=== PATIENT | male | born 1955 | race African-American/Black ===

== ENCOUNTER 2017-08-02 11:58 | Inpatient (IN) | payer OTHER ==
[2017-08-02 12:28] VITALS: BMI 16.7
--- NOTE | 2017-08-02 13:53 | HP ---
Admission ROS [facility] Chief Complaint: I WANT TO GO TO REHAB Allergies/Adverse Reactions: Allergies Allergy/AdvReac Type Severity Reaction Status Date / Time No Known Allergies Allergy Verified 08/02/17 13:48 History of Present Illness: 61 years old male with long history of alcohol nicotine dependence has hiv asthma hypothyroid stroke x 2 ambulate with cane right side weakness is admitted to REHAB PATIENT EXPERIENCED CHEST WALL MUSCLE PAIN TREATED AT [facility] ER DISCHARGED TODAY TO [facility] FOR CHEMICAL REHAB Exam Limitations: No Limitations - Ebola screening Have you traveled outside of the country in the last 21 days: No Have you had contact with anyone from an Ebola affected area: No Have you been sick,other than usual withdrawal symptoms: No Do you have a fever: No - Review of Systems Constitutional: Loss of Appetite, Unintentional Wgt. Loss, Unexplained wgt Loss EENT: reports: Blurred Vision (eye glasses), Dental Problems (multiple teeth missing) Respiratory: reports: No Symptoms reported Cardiac: reports: No Symptoms Reported : reports: No Symptoms Reported Musculoskeletal: reports: No Symptoms Reported Integumentary: reports: No Symptoms Reported Neuro: reports: No Symptoms reported Endocrine: reports: Unexplained Weight Loss Hematology: reports: No Symptoms Reported Psychiatric: reports: Judgement Intact, Orientated x3, Anxious, Depressed Other Systems: Reviewed and Negative Patient History - Patient Medical History Hx Anemia: Yes (HX OF ANEMIA) Hx Asthma: Yes (ALBUTEROL INHALER) Hx Chronic Obstructive Pulmonary Disease (COPD): No Hx Cancer: No Hx Cardiac Disorders: Yes (HEART MURMUR--NO MED) Hx Congestive Heart Failure: No Hx Hypertension: No Hx Hypercholesterolemia: No Hx Pacemaker: No HX Cerebrovascular Accident: Yes (X 2-PARALYSIS LEFT SIDE 6 YRS AGO--INTERMEDIATE REHABED) Hx Seizures: No Hx Dementia: No Hx Diabetes: No Hx Gastrointestinal Disorders: Yes (bun elevation) Hx Liver Disease: Yes ("I HAVE BAD LIVER") Hx Genitourinary Disorders: No Hx Sexually Transmitted Disorders: No Hx Renal Disease (ESRD): Yes ("I HAVE BAD KIDNEYS") Hx Thyroid Disease: Yes (ON MED LEVOTHYROXINE 50 MCG ) Hx Human Immunodeficiency Virus (HIV): Yes (SINCE 1984--AIDS; HX OF ORAL THRUSH/ BACTERIAL PNEUMONIA/WT LOSS) Hx Hepatitis C: Yes Hx Depression: Yes Hx Suicide Attempt: No (DENIES) Hx Bipolar Disorder: No Hx Schizophrenia: No - Patient Surgical History Past Surgical History: No - PPD History Previous Implant?: Yes Documented Results: Negative w/proof Implanted On Prior [facility] Admission?: Yes Date: 07/27/13 PPD to be Administered?: Yes - Smoking Cessation Smoking history: Current every day smoker Have you smoked in the past 12 months: Yes Aproximately how many cigarettes per day: 5 Hx Chewing Tobacco Use: No Initiated information on smoking cessation: Yes 'Breaking Loose' booklet given: 08/02/17 - Substance & Tx. History Hx Alcohol Use: Yes Hx Substance Use: No Substance Use Type: Alcohol, Cocaine Hx Substance Use Treatment: Yes (2013 [facility]) - Substances Abused Alcohol-beer/vodka Route: Oral Frequency: 1-3 times last 30 days Amount used: 1 (16 oz.)/1/2 pt. Age of first use: 7 Date of Last Use: 08/01/17 Crack Route: Smoking Frequency: 1-3 times last 30 days Amount used: $100-200 Age of first use: 32 Date of Last Use: 08/01/17 Family Disease History - Family Disease History Family Disease History: Diabetes: Mother (), Heart Disease: Father ( ), Brother (), Other: Father, Mother, Brother Admission Physical Exam S - Vital Signs Vital Signs: Vital Signs - 24 hr 08/02/17 12:18 Temperature 97 F L Pulse Rate 73 Respiratory 20 Rate Blood Pressure 112/59 - Physical General Appearance: Yes: No Apparent Distress, Appropriately Dressed, Thin HEENTM: Yes: Hearing grossly Normal, Normocephalic, Normal Voice, Other (EYE GLASSES) Respiratory: Yes: Chest Non-Tender, Lungs Clear, Normal Breath Sounds, No Respiratory Distress, No Accessory Muscle Use Neck: Yes: Supple, Trachea in good position Breast: Yes: Breasts Symetrical, No Discharge Cardiology: Yes: Regular Rhythm, Regular Rate, S1, S2 Abdominal: Yes: Normal Bowel Sounds, Non Tender, Flat Genitourinary: Yes: Within Normal Limits Back: Yes: Normal Inspection Musculoskeletal: Yes: full range of Motion, Gait Steady (CANE) Extremities: Yes: Normal Inspection, Non-Tender Neurological: Yes: Fully Oriented, Alert, Normal Response, Depressed Affect Integumentary: Yes: Normal Color, Warm Lymphatic: Yes: Within Normal Limits - Diagnostic (1) Weight loss Current Visit: Yes Status: Acute (2) Hepatitis C Current Visit: Yes Status: Chronic Qualifiers: Viral hepatitis chronicity: carrier Qualified Code(s): B18.2 - Chronic viral hepatitis C Comment: TREATED (3) Depression (emotion) Current Visit: Yes Status: Suspected Qualifiers: Depression Type: dysthymia Qualified Code(s): F34.1 - Dysthymic disorder (4) Asthma Current Visit: Yes Status: Chronic Qualifiers: Asthma severity: mild Asthma persistence: intermittent Asthma complication type: with status asthmaticus Qualified Code(s): J45.22 - Mild intermittent asthma with status asthmaticus (5) CVA (cerebrovascular accident) Current Visit: No Status: Resolved Qualifiers: CVA mechanism: unspecified Qualified Code(s): I63.9 - Cerebral infarction, unspecified (6) HIV infection Current Visit: Yes Status: Chronic Comment: NO TREATMENT STRONG RECOMMEND THE PATIENT FOLLOW UP WITH INFECTIOUS DISEASE PROVIDER (7) Hypothyroid Current Visit: Yes Status: Chronic Qualifiers: Hypothyroidism type: acquired Qualified Code(s): E03.9 - Hypothyroidism, unspecified (8) Nicotine dependence Current Visit: Yes Status: Acute Qualifiers: Nicotine product type: cigarettes Substance use status: in withdrawal Qualified Code(s): F17.213 - Nicotine dependence, cigarettes, with withdrawal (9) Chronic wound of extremity Current Visit: Yes Status: Chronic Comment: LEFT HEEL CHRONIC WOUND NO DISCHARGE DRY CRUSTY (10) Dry skin dermatitis Current Visit: Yes Status: Chronic Comment: DRY HYPERPIGMENTATION OF THE SKIN Cleared for Admission [facility] - Detox or Rehab [facility] Level of Care: Observation Bed Detox Regimen/Protocol: Not Applicable Claeared for Rehab Admission: Yes [facility] Breath Alcohol Content Breath Alcohol Content: 0 Urine Drug Screen - Control Is Test Valid: Yes - Results Drug Screen Negative: No Urine Drug Screen Results: TANO-Cocaine Inpatient Rehab Admission - Initial Determination Are CD services needed?: Yes Free of communicable disease: Yes Not in need of hospitalization: Yes - Rehab Admission Criteria Previous failed treatment: Yes Poor recovery environment: Yes Comorbidities: Yes Lacks judgement: No Patient is meeting Inpatient Rehab admission criteria:: Yes
[2017-08-02] MEDS ORDERED: IBUPROFEN 400 MG TABLET (FP) PO PRN (14:20)
[2017-08-02] MEDS ORDERED: MAGNESIUM HYDROX 2400MG/30ML ORAL SUSPENSION 30 ML CUP PO PRN (14:20)
[2017-08-02] MEDS ORDERED: MAG HYDROX/AL HYDROX/SIMETH 30 ML UNIT-DOSE CUP PO PRN (14:20)
[2017-08-02] MEDS ORDERED: NICOTINE POLACRILEX 2 MG GUM BC PRN (14:20)
[2017-08-02] MEDS ORDERED: P-EPHED 60MG/TRIPROLIDI 2.5MG TABLET PO PRN (14:20)
[2017-08-02] MEDS ORDERED: guaiFENesin/D-METHORPHAN HB 10 ML UNIT-DOSE CUPS PO PRN (14:20)
[2017-08-02] MEDS ORDERED: MAGNESIUM CITRATE 300 ML BOTTLE PO PRN (14:20)
[2017-08-02] MEDS ORDERED: MENTHOL/PHENOL 1 EACH UD MM PRN (14:20)
[2017-08-02] MEDS ORDERED: ALBUTEROL SO4 18 GM HFA INHALER IH PRN (14:23)
[2017-08-02] MEDS ORDERED: DOCUSATE SODIUM 100 MG CAPSULE (FP) PO PRN (15:28)
[2017-08-02] MEDS ORDERED: COLLOIDAL OATMEAL 1 BAR EACH TP PRN (15:33)
[2017-08-02] MEDS ORDERED: BACLOFEN 10 MG TABLET (FP) PO PRN (15:37)
[2017-08-02] MEDS ORDERED: TUBERCULIN PPD 5 TU/0.1ML VIAL ID ONE (20:51)
[2017-08-02] MEDS: MELATONIN 5 MG TABLETS PO PRN (22:09)
[2017-08-02] MEDS: THIAMINE HCL 100 MG TABLET (FP) PO SCH (22:09)
[2017-08-02] MEDS: NICOTINE 14 MG/24 HOURS TOPICAL PATCH TD SCH (22:11)
[2017-08-02] MEDS: MINERAL OIL/PETROLAT/WATER TOPICAL CREAM 113 GM JAR TP SCH (22:16)
[2017-08-03] MEDS: LOPERAMIDE HCL 2 MG CAPSULE PO PRN ×2 (01:11→21:38)
[2017-08-03] MEDS: LEVOTHYROXINE NA 25 MCG TABLET (FP) PO SCH (06:04)
--- NOTE | 2017-08-03 06:30 | HP ---
Psychiatrist Admission - Data Date of interview: 08/03/17 Admission source: [facility] Identifying data: This is the second [facility] admission for this 61 years old single Black male, unemployed on [employer] and [employer] subsidized congregate housing Medical History: Significant for anemia, bronchial asthma, HIV(85)/AIDS, hypothyroidism, hepatitis C, A & B, heart murmur and history of cerebrovascular accident x2 with right sided weakness 6 years ago. Smokes 5 cigarettes daily Psychiatric History: Denies history of previous psychiatric treatment Physical/Sexual Abuse/Trauma History: Denies history of emotional, physical or sexual as well as DV relationhip. No service Additional Comment: Reports history of multiple previous arretst including 3 felony convictions. Denies being on parole/probation at present Vital Signs: Vital Signs - 24 hr 08/02/17 08/03/17 08/03/17 12:18 00:30 03:30 Temperature 97 F L Pulse Rate 73 Respiratory 20 18 18 Rate Blood Pressure 112/59 Allergies/Adverse Reactions: Allergies Allergy/AdvReac Type Severity Reaction Status Date / Time No Known Allergies Allergy Verified 08/02/17 13:48 Date of last physical exam: 08/02/17 Concur with the findings of this exam: Yes - Substance Abuse/Tx History Hx Alcohol Use: Yes Hx Substance Use: Yes Substance Use Type: Alcohol (Started drinking alcohol at age 7, consumes half a pint of vodka & a 16oz of beer daily. Last drank on 08/01/17), Cocaine (Started smoking crack cocaine at age 32, consumes $200-300 monthly. Last smoked on ) Hx Substance Use Treatment: Yes (One inpt detox & one inpt rehab @ [facility]) Mental Status Exam - Mental Status Exam Alert and Oriented to: Time, Place, Person Cognitive Function: Fair Patient Appearance: Disheveled Mood: Anxious Affect: Appropriate Patient Behavior: Cooperative Speech Pattern: Clear Voice Loudness: Normal Thought Process: Intact, Goal Oriented Hallucinations: Denies Suicidal Ideation: Denies Homicidal Ideation: Denies Insight/Judgement: Poor Sleep: Poorly Appetite: Good Muscle strength/Tone: Normal Gait/Station: Other (uses cane as ambulary aid) Psychiatric Findings - Problem List ([place] 1, 2,3) (1) Alcohol dependence Current Visit: Yes Status: Acute (2) Cocaine dependence Current Visit: Yes Status: Acute (3) Nicotine dependence Current Visit: Yes Status: Chronic Qualifiers: Nicotine product type: cigarettes Substance use status: in withdrawal Qualified Code(s): F17.213 - Nicotine dependence, cigarettes, with withdrawal (4) Substance-induced sleep disorder Current Visit: Yes Status: Acute (5) Hypothyroid Current Visit: Yes Status: Chronic Qualifiers: Hypothyroidism type: acquired Qualified Code(s): E03.9 - Hypothyroidism, unspecified (6) HIV infection Current Visit: Yes Status: Chronic Comment: NO TREATMENT STRONG RECOMMEND THE PATIENT FOLLOW UP WITH INFECTIOUS DISEASE PROVIDER (7) CVA (cerebrovascular accident) Current Visit: No Status: Resolved Qualifiers: CVA mechanism: unspecified Qualified Code(s): I63.9 - Cerebral infarction, unspecified (8) Asthma Current Visit: Yes Status: Chronic Qualifiers: Asthma severity: mild Asthma persistence: intermittent Asthma complication type: with status asthmaticus Qualified Code(s): J45.22 - Mild intermittent asthma with status asthmaticus (9) Hepatitis C Current Visit: Yes Status: Chronic Qualifiers: Viral hepatitis chronicity: carrier Qualified Code(s): B18.2 - Chronic viral hepatitis C Comment: TREATED - Initial Treatment Plan Initial Treatment Plan: 1) Start Melatonin 5 mg po HS prn for insomnia. 2) Monitor progress
[2017-08-03 10:24] LABS: MCH 28.6 pg (25.7-33.7); MCHC 31.3 g/dl (32.0-35.9); MEAN CELL VOLUME 91.2 fl (80-96); PLATELET COUNT 95 K/MM3 (134-434); RBC 3.51 M/mm3 (4.00-5.60); RDW 14.9 % (11.9-15.9); WHITE BLOOD COUNT 3.3 K/mm3 (4.0-10.0)
[2017-08-03] MEDS: NICOTINE 14 MG/24 HOURS TOPICAL PATCH TD SCH (10:37)
[2017-08-03] MEDS: PRENATAL VITAMINS W/ FOLIC ACID TABLET (FP) PO SCH (10:37)
[2017-08-03 11:27] LABS: ALBUMIN 3.3 g/dl (3.4-5.0); ANION GAP 12 (8-16); BLOOD UREA NITROGEN 37 mg/dL (7-18); CALCIUM 8.1 mg/dL (8.5-10.1); CHLORIDE 113 mmol/L (98-107); CO2 17 mmol/L (21-32); GLUCOSE,RANDOM 93 mg/dL (74-106); POTASSIUM 4.5 mmol/L (3.5-5.1); SODIUM 142 mmol/L (136-145)
[2017-08-03 11:41] LABS: ALK PHOS 75 U/L (45-117); BILIRUBIN,TOTAL 0.3 mg/dL (0.2-1.0); CREATININE 2.4 mg/dL (0.7-1.3); SGOT/AST 41 U/L (15-37); SGPT/ALT 25 U/L (12-78); TOT PROT 9.7 g/dl (6.4-8.2)
--- NOTE | 2017-08-03 11:54 | EKG ---
Test Reason : Blood Pressure : / mmHG Vent. Rate : 061 BPM Atrial Rate : 061 BPM P-R Int : 166 ms QRS Dur : 072 ms QT Int : 422 ms P-R-T Axes : 047 -48 037 degrees QTc Int : 424 ms NORMAL SINUS RHYTHM LEFT ANTERIOR FASCICULAR BLOCK ABNORMAL ECG NO PREVIOUS ECGS AVAILABLE Confirmed by MINH VARGAS MD ([id number]) on 08/03/2017 11:54:14 AM Referred By: Confirmed By:MINH VARGAS MD
[2017-08-03] MEDS: ACETAMINOPHEN 325 MG TABLET (FP) PO PRN (13:32)
--- NOTE | 2017-08-03 14:55 | PN ---
[facility] Progress Note Note: Labs reviewed and as follows: Laboratory Tests 08/03/17 08/03/17 08/03/17 06:00 06:00 06:00 WBC 3.3 L D RBC 3.51 L Hgb 10.0 L Hct 32.0 L MCV 91.2 MCH 28.6 MCHC 31.3 L RDW 14.9 Plt Count 95 L MPV 9.0 D Sodium 142 Potassium 4.5 Chloride 113 H Carbon Dioxide 17 L Anion Gap 12 BUN 37 H Creatinine 2.4 H D Creat Clearance w eGFR 27.66 Random Glucose 93 Calcium 8.1 L Total Bilirubin 0.3 D AST 41 H D ALT 25 Alkaline Phosphatase 75 D Total Protein 9.7 H Albumin 3.3 L TSH 3.01 RPR Titer Nonreactive Vital Signs Temperature 97.3 F L 08/03/17 07:00 Pulse Rate 78 08/03/17 07:00 Respiratory Rate 18 08/03/17 07:00 Blood Pressure 124/79 08/03/17 07:00 O2 Sat by Pulse Oximetry (%) BUN and Creatnine elevated: Will d/c motrin continue oral fluids repeat BMP 08/07/17
[2017-08-03] MEDS: THIAMINE HCL 100 MG TABLET (FP) PO SCH (21:38)
[2017-08-03] MEDS: MELATONIN 5 MG TABLETS PO PRN (21:38)
[2017-08-03] MEDS: MINERAL OIL/PETROLAT/WATER TOPICAL CREAM 113 GM JAR TP SCH (22:00)
[2017-08-04] MEDS: LEVOTHYROXINE NA 25 MCG TABLET (FP) PO SCH (06:32)
[2017-08-04] MEDS: PRENATAL VITAMINS W/ FOLIC ACID TABLET (FP) PO SCH (10:26)
[2017-08-04] MEDS: NICOTINE 14 MG/24 HOURS TOPICAL PATCH TD SCH (10:26)
--- NOTE | 2017-08-04 14:54 | PN ---
[facility] Progress Note Note: dry skin, pain on left heel. Vital Signs Temperature 97.8 F 08/04/17 07:13 Pulse Rate 97 H 08/04/17 08:54 Respiratory Rate 18 08/04/17 07:13 Blood Pressure 117/79 08/04/17 08:54 O2 Sat by Pulse Oximetry (%) Laboratory Last Values WBC 3.3 K/mm3 (4.0-10.0) L D 08/03/17 06:00 RBC 3.51 M/mm3 (4.00-5.60) L 08/03/17 06:00 Hgb 10.0 GM/dL (11.7-16.9) L 08/03/17 06:00 Hct 32.0 % (35.4-49) L 08/03/17 06:00 MCV 91.2 fl (80-96) 08/03/17 06:00 MCH 28.6 pg (25.7-33.7) 08/03/17 06:00 MCHC 31.3 g/dl (32.0-35.9) L 08/03/17 06:00 RDW 14.9 % (11.9-15.9) 08/03/17 06:00 Plt Count 95 K/MM3 (134-434) L 08/03/17 06:00 MPV 9.0 fl (7.5-11.1) D 08/03/17 06:00 Sodium 142 mmol/L (136-145) 08/03/17 06:00 Potassium 4.5 mmol/L (3.5-5.1) 08/03/17 06:00 Chloride 113 mmol/L (98-107) H 08/03/17 06:00 Carbon Dioxide 17 mmol/L (21-32) L 08/03/17 06:00 Anion Gap 12 (8-16) 08/03/17 06:00 BUN 37 mg/dL (7-18) H 08/03/17 06:00 Creatinine 2.4 mg/dL (0.7-1.3) H D 08/03/17 06:00 Creat Clearance w eGFR 27.66 (>60) 08/03/17 06:00 Random Glucose 93 mg/dL (74-106) 08/03/17 06:00 Calcium 8.1 mg/dL (8.5-10.1) L 08/03/17 06:00 Total Bilirubin 0.3 mg/dL (0.2-1.0) D 08/03/17 06:00 AST 41 U/L (15-37) H D 08/03/17 06:00 ALT 25 U/L (12-78) 08/03/17 06:00 Alkaline Phosphatase 75 U/L (45-117) D 08/03/17 06:00 Total Protein 9.7 g/dl (6.4-8.2) H 08/03/17 06:00 Albumin 3.3 g/dl (3.4-5.0) L 08/03/17 06:00 TSH 3.01 uIU/ml (0.358-3.74) 08/03/17 06:00 RPR Titer Nonreactive (NONREACTIVE) 08/03/17 06:00 -dry skin, + callus on old healed wound on the left heel, skin intact, no signs of tissue injury - no adventitious breath sounds - Patient ambulating in the unit Plan: Increase fluids Apply A&D oint to left heel skin precautions continue to monitor
[2017-08-04] MEDS: VITAMINS A AND D TOPICAL OINTMENT 60 GM TUBE TP SCH ×2 (15:20→21:09)
[2017-08-04] MEDS: THIAMINE HCL 100 MG TABLET (FP) PO SCH (21:09)
[2017-08-04] MEDS: MELATONIN 5 MG TABLETS PO PRN (21:44)
[2017-08-04] MEDS: MINERAL OIL/PETROLAT/WATER TOPICAL CREAM 113 GM JAR TP SCH (21:45)
[2017-08-05] MEDS: VITAMINS A AND D TOPICAL OINTMENT 60 GM TUBE TP SCH ×3 (05:51→21:18)
[2017-08-05] MEDS: LEVOTHYROXINE NA 25 MCG TABLET (FP) PO SCH (06:04)
[2017-08-05] MEDS: PRENATAL VITAMINS W/ FOLIC ACID TABLET (FP) PO SCH (09:50)
[2017-08-05] MEDS: NICOTINE 14 MG/24 HOURS TOPICAL PATCH TD SCH (09:50)
[2017-08-05] MEDS: THIAMINE HCL 100 MG TABLET (FP) PO SCH (21:17)
[2017-08-05] MEDS: MELATONIN 5 MG TABLETS PO PRN (21:17)
[2017-08-05] MEDS: ACETAMINOPHEN 325 MG TABLET (FP) PO PRN (21:17)
[2017-08-05] MEDS: MINERAL OIL/PETROLAT/WATER TOPICAL CREAM 113 GM JAR TP SCH (21:18)
[2017-08-06] MEDS: VITAMINS A AND D TOPICAL OINTMENT 60 GM TUBE TP SCH ×3 (06:15→21:17)
[2017-08-06] MEDS: LEVOTHYROXINE NA 25 MCG TABLET (FP) PO SCH (06:15)
[2017-08-06] MEDS: NICOTINE 14 MG/24 HOURS TOPICAL PATCH TD SCH (09:59)
[2017-08-06] MEDS: PRENATAL VITAMINS W/ FOLIC ACID TABLET (FP) PO SCH (09:59)
[2017-08-06] MEDS: ACETAMINOPHEN 325 MG TABLET (FP) PO PRN ×2 (10:00→21:16)
[2017-08-06] MEDS: THIAMINE HCL 100 MG TABLET (FP) PO SCH (21:16)
[2017-08-06] MEDS: MELATONIN 5 MG TABLETS PO PRN (21:16)
[2017-08-06] MEDS: MINERAL OIL/PETROLAT/WATER TOPICAL CREAM 113 GM JAR TP SCH (23:55)
[2017-08-07] MEDS: ACETAMINOPHEN 325 MG TABLET (FP) PO PRN ×4 (06:22→21:24)
[2017-08-07] MEDS: LEVOTHYROXINE NA 25 MCG TABLET (FP) PO SCH (06:23)
[2017-08-07] MEDS: VITAMINS A AND D TOPICAL OINTMENT 60 GM TUBE TP SCH ×3 (06:23→21:25)
[2017-08-07] MEDS: PRENATAL VITAMINS W/ FOLIC ACID TABLET (FP) PO SCH (10:02)
[2017-08-07] MEDS: NICOTINE 14 MG/24 HOURS TOPICAL PATCH TD SCH (10:04)
[2017-08-07 10:08] LABS: CHLORIDE 110 mmol/L (98-107); POTASSIUM 4.2 mmol/L (3.5-5.1); SODIUM 140 mmol/L (136-145)
[2017-08-07 10:25] LABS: ANION GAP 4 (8-16); BLOOD UREA NITROGEN 17 mg/dL (7-18); CALCIUM 8.2 mg/dL (8.5-10.1); CO2 26 mmol/L (21-32); CREATININE 1.5 mg/dL (0.7-1.3); GLUCOSE,RANDOM 146 mg/dL (74-106)
[2017-08-07] MEDS: THIAMINE HCL 100 MG TABLET (FP) PO SCH (21:24)
[2017-08-07] MEDS: MELATONIN 5 MG TABLETS PO PRN (21:24)
[2017-08-07] MEDS: MINERAL OIL/PETROLAT/WATER TOPICAL CREAM 113 GM JAR TP SCH (23:04)
[2017-08-08] MEDS: VITAMINS A AND D TOPICAL OINTMENT 60 GM TUBE TP SCH ×2 (06:23→14:50)
[2017-08-08] MEDS: LEVOTHYROXINE NA 25 MCG TABLET (FP) PO SCH (06:23)
[2017-08-08] MEDS: ACETAMINOPHEN 325 MG TABLET (FP) PO PRN ×4 (06:24→21:52)
[2017-08-08] MEDS: PRENATAL VITAMINS W/ FOLIC ACID TABLET (FP) PO SCH (10:01)
[2017-08-08] MEDS: NICOTINE 14 MG/24 HOURS TOPICAL PATCH TD SCH (10:01)
--- NOTE | 2017-08-08 14:03 | PN ---
S Progress Note Note: Patient seen for c/o frequent urination. Denies burning and urgency with urination. Patient remain afebrile and medically stable. Vital Signs Temperature 98.0 F 08/08/17 07:08 Pulse Rate 89 08/08/17 07:08 Respiratory Rate 18 08/08/17 07:08 Blood Pressure 110/71 08/08/17 07:08 O2 Sat by Pulse Oximetry (%) Unsure if he has PMH of BPH. Will check UA and continue to monitor clinically.
[2017-08-08] MEDS: MINERAL OIL/PETROLAT/WATER TOPICAL CREAM 113 GM JAR TP SCH (22:45)
[2017-08-09] MEDS: THIAMINE HCL 100 MG TABLET (FP) PO SCH ×2 (00:17→21:06)
[2017-08-09] MEDS: VITAMINS A AND D TOPICAL OINTMENT 60 GM TUBE TP SCH ×4 (00:17→21:06)
[2017-08-09] MEDS: ACETAMINOPHEN 325 MG TABLET (FP) PO PRN ×4 (05:55→21:07)
[2017-08-09] MEDS: LEVOTHYROXINE NA 25 MCG TABLET (FP) PO SCH (06:12)
[2017-08-09] MEDS: NICOTINE 14 MG/24 HOURS TOPICAL PATCH TD SCH (09:41)
[2017-08-09] MEDS: PRENATAL VITAMINS W/ FOLIC ACID TABLET (FP) PO SCH (09:41)
[2017-08-09 10:08] LABS: URINE APPEARANCE TURBID; URINE BILIRUBIN NEGATIVE (<2.0 mg/dL); URINE BLOOD 2+ (NEGATIVE); URINE COLOR YELLOW; URINE GLUCOSE (UA) NEGATIVE (NEGATIVE); URINE KETONE NEGATIVE (NEGATIVE); URINE NITRITE POSITIVE (NEGATIVE); URINE UROBILINOGEN NEGATIVE mg/dL (0.2-1.0)
[2017-08-09 10:09] LABS: URINE LEUK ESTERASE 3+ (NEGATIVE); URINE PROTEIN 2+ (NEGATIVE)
[2017-08-09 10:15] LABS: URINE BACTERIA MANY /hpf (NONE SEEN)
--- NOTE | 2017-08-09 15:20 | PN ---
S Progress Note Note: Patient c/o urinary discomfort. Vital Signs Temperature 98.5 F 08/09/17 07:00 Pulse Rate 83 08/09/17 07:00 Respiratory Rate 18 08/09/17 07:00 Blood Pressure 112/83 08/09/17 07:00 O2 Sat by Pulse Oximetry (%) Laboratory Last Values WBC 3.3 K/mm3 (4.0-10.0) L D 08/03/17 06:00 RBC 3.51 M/mm3 (4.00-5.60) L 08/03/17 06:00 Hgb 10.0 GM/dL (11.7-16.9) L 08/03/17 06:00 Hct 32.0 % (35.4-49) L 08/03/17 06:00 MCV 91.2 fl (80-96) 08/03/17 06:00 MCH 28.6 pg (25.7-33.7) 08/03/17 06:00 MCHC 31.3 g/dl (32.0-35.9) L 08/03/17 06:00 RDW 14.9 % (11.9-15.9) 08/03/17 06:00 Plt Count 95 K/MM3 (134-434) L 08/03/17 06:00 MPV 9.0 fl (7.5-11.1) D 08/03/17 06:00 Sodium 140 mmol/L (136-145) 08/07/17 07:50 Potassium 4.2 mmol/L (3.5-5.1) 08/07/17 07:50 Chloride 110 mmol/L (98-107) H 08/07/17 07:50 Carbon Dioxide 26 mmol/L (21-32) D 08/07/17 07:50 Anion Gap 4 (8-16) L 08/07/17 07:50 BUN 17 mg/dL (7-18) D 08/07/17 07:50 Creatinine 1.5 mg/dL (0.7-1.3) H D 08/07/17 07:50 Creat Clearance w eGFR 27.66 (>60) 08/03/17 06:00 Random Glucose 146 mg/dL (74-106) H D 08/07/17 07:50 Calcium 8.2 mg/dL (8.5-10.1) L 08/07/17 07:50 Total Bilirubin 0.3 mg/dL (0.2-1.0) D 08/03/17 06:00 AST 41 U/L (15-37) H D 08/03/17 06:00 ALT 25 U/L (12-78) 08/03/17 06:00 Alkaline Phosphatase 75 U/L (45-117) D 08/03/17 06:00 Total Protein 9.7 g/dl (6.4-8.2) H 08/03/17 06:00 Albumin 3.3 g/dl (3.4-5.0) L 08/03/17 06:00 TSH 3.01 uIU/ml (0.358-3.74) 08/03/17 06:00 Urine Color Yellow 08/09/17 08:40 Urine Appearance Turbid 08/09/17 08:40 Urine pH 6.0 (5.0-8.0) 08/09/17 08:40 Ur Specific [place] 1.014 (1.001-1.035) 08/09/17 08:40 Urine Protein 2+ (NEGATIVE) H 08/09/17 08:40 Urine Glucose (UA) Negative (NEGATIVE) 08/09/17 08:40 Urine Ketones Negative (NEGATIVE) 08/09/17 08:40 Urine Blood 2+ (NEGATIVE) H 08/09/17 08:40 Urine Nitrite Positive (NEGATIVE) 08/09/17 08:40 Urine Bilirubin Negative (<2.0 mg/dL) 08/09/17 08:40 Urine Urobilinogen Negative mg/dL (0.2-1.0) 08/09/17 08:40 Ur Leukocyte Esterase 3+ (NEGATIVE) H 08/09/17 08:40 Urine WBC (Auto) 1361 /hpf (3-5) 08/09/17 08:40 Urine RBC (Auto) 98 /hpf (0-3) 08/09/17 08:40 Urine Bacteria Many /hpf (NONE SEEN) 08/09/17 08:40 RPR Titer Nonreactive (NONREACTIVE) 08/03/17 06:00 - UTI Plan: Bactrim PO BID x 5 days Pending urine culture increase fluids continue to monitor
[2017-08-09] MEDS: MINERAL OIL/PETROLAT/WATER TOPICAL CREAM 113 GM JAR TP SCH (21:06)
[2017-08-09] MEDS: SULFAMETHOXAZOLE/TRIMETHOPRIM 800MG/160MG D.S. TABLET PO SCH (21:07)
[2017-08-10] MEDS: ACETAMINOPHEN 325 MG TABLET (FP) PO PRN ×4 (06:00→21:30)
[2017-08-10] MEDS: VITAMINS A AND D TOPICAL OINTMENT 60 GM TUBE TP SCH ×3 (06:01→21:30)
[2017-08-10] MEDS: LEVOTHYROXINE NA 25 MCG TABLET (FP) PO SCH (06:01)
[2017-08-10 07:05] VITALS: BP 119/90; PULSE 78; TEMP 98.1
[2017-08-10] MEDS: PRENATAL VITAMINS W/ FOLIC ACID TABLET (FP) PO SCH (10:03)
[2017-08-10] MEDS: SULFAMETHOXAZOLE/TRIMETHOPRIM 800MG/160MG D.S. TABLET PO SCH ×2 (10:03→21:29)
[2017-08-10] MEDS: NICOTINE 14 MG/24 HOURS TOPICAL PATCH TD SCH (10:04)
[2017-08-10] MEDS: THIAMINE HCL 100 MG TABLET (FP) PO SCH (21:29)
[2017-08-10] MEDS: MELATONIN 5 MG TABLETS PO PRN (21:29)
[2017-08-10] MEDS: MINERAL OIL/PETROLAT/WATER TOPICAL CREAM 113 GM JAR TP SCH (21:31)
[2017-08-11] MEDS: ACETAMINOPHEN 325 MG TABLET (FP) PO PRN (10:14)
[2017-08-11] MEDS: PRENATAL VITAMINS W/ FOLIC ACID TABLET (FP) PO SCH (10:14)
[2017-08-11] MEDS: SULFAMETHOXAZOLE/TRIMETHOPRIM 800MG/160MG D.S. TABLET PO SCH (10:14)
[2017-08-11] MEDS: NICOTINE 14 MG/24 HOURS TOPICAL PATCH TD SCH (10:15)
[2017-08-11] MEDS: VITAMINS A AND D TOPICAL OINTMENT 60 GM TUBE TP SCH ×2 (11:13→14:39)
[2017-08-11] MEDS: LEVOTHYROXINE NA 25 MCG TABLET (FP) PO SCH (11:14)
--- NOTE | 2017-08-11 12:25 | PN ---
[facility] Progress Note Note: Notified by MAHENDRA Noe that Urine culture presumptive MRSA > 100,000 colonies. + PBP2A. Spoke with Dr. Castaneda ID doctor regarding results. Due to patients history of IVDA, recommended to have blood cultures done to rule out sepsis. Patient evaluated at bedside and continues to have c/o dysuria and frequency. Laboratory Tests 08/03/17 08/03/17 08/03/17 06:00 06:00 06:00 WBC 3.3 L D RBC 3.51 L Hgb 10.0 L Hct 32.0 L MCV 91.2 MCH 28.6 MCHC 31.3 L RDW 14.9 Plt Count 95 L MPV 9.0 D Sodium 142 Potassium 4.5 Chloride 113 H Carbon Dioxide 17 L Anion Gap 12 BUN 37 H Creatinine 2.4 H D Creat Clearance w eGFR 27.66 Random Glucose 93 Calcium 8.1 L Total Bilirubin 0.3 D AST 41 H D ALT 25 Alkaline Phosphatase 75 D Total Protein 9.7 H Albumin 3.3 L TSH 3.01 Urine Color Urine Appearance Urine pH Ur Specific [place] Urine Protein Urine Glucose (UA) Urine Ketones Urine Blood Urine Nitrite Urine Bilirubin Urine Urobilinogen Ur Leukocyte Esterase Urine WBC (Auto) Urine RBC (Auto) Urine Bacteria RPR Titer Nonreactive 08/07/17 08/09/17 07:50 08:40 WBC RBC Hgb Hct MCV MCH MCHC RDW Plt Count MPV Sodium 140 Potassium 4.2 Chloride 110 H Carbon Dioxide 26 D Anion Gap 4 L BUN 17 D Creatinine 1.5 H D Creat Clearance w eGFR Random Glucose 146 H D Calcium 8.2 L Total Bilirubin AST ALT Alkaline Phosphatase Total Protein Albumin TSH Urine Color Yellow Urine Appearance Turbid Urine pH 6.0 Ur Specific [place] 1.014 Urine Protein 2+ H Urine Glucose (UA) Negative Urine Ketones Negative Urine Blood 2+ H Urine Nitrite Positive Urine Bilirubin Negative Urine Urobilinogen Negative Ur Leukocyte Esterase 3+ H Urine WBC (Auto) 1361 Urine RBC (Auto) 98 Urine Bacteria Many RPR Titer Vital Signs Temperature 98.1 F 08/10/17 07:03 Pulse Rate 78 08/10/17 07:03 Respiratory Rate 18 08/11/17 00:30 Blood Pressure 119/90 08/10/17 07:03 O2 Sat by Pulse Oximetry (%) obj: skin: warm and dry car: s1s2, RRR resp: CTA BL gu: no pelvic tenderness, no CVAT ext: no edema a/p: Positive MRSA Urine Patient to be transferred to ER for evaluation and treatment.
[2017-08-12] MEDS: MINERAL OIL/PETROLAT/WATER TOPICAL CREAM 113 GM JAR TP SCH (00:18)
[2017-08-12] MEDS: SULFAMETHOXAZOLE/TRIMETHOPRIM 800MG/160MG D.S. TABLET PO SCH (00:18)
[2017-08-12] MEDS: VITAMINS A AND D TOPICAL OINTMENT 60 GM TUBE TP SCH (00:18)
[2017-08-12] MEDS: THIAMINE HCL 100 MG TABLET (FP) PO SCH (00:19)
== END 2017-08-12 00:30 | disposition short-term general hospital (02) | DRG 772 ==
LOC: YASAS 11:58 → Y3W 16:12
PROVIDERS: ADMIT Psychiatry & Neurology Psychiatry; ATTEND Psychiatry & Neurology Psychiatry
PROC: HZ42ZZZ Group Counseling for Substance Abuse Treatment, Cognitive-Behavioral (ICD-10-PCS; principal; 2017-08-05)
DX: F10.230 Alcohol dependence with withdrawal, uncomplicated (principal); F14.20 Cocaine dependence, uncomplicated; F17.213 Nicotine dependence, cigarettes, with withdrawal; F19.282 Other psychoactive substance dependence with psychoactive substance-induced sleep disorder; B20 Human immunodeficiency virus [HIV] disease; E03.9 Hypothyroidism, unspecified; J45.22 Mild intermittent asthma with status asthmaticus; N30.00 Acute cystitis without hematuria; B95.62 Methicillin resistant Staphylococcus aureus infection as the cause of diseases classified elsewhere; L03.116 Cellulitis of left lower limb; B18.2 Chronic viral hepatitis C; R01.1 Cardiac murmur, unspecified; L85.3 Xerosis cutis; Z86.73 Personal history of transient ischemic attack (TIA), and cerebral infarction without residual deficits; Z87.898 Personal history of other specified conditions
CPT/HCPCS: 36415; 80048; 80053; 81003; 81015; 84443; 85027; 86593; 87086; 87186; 93005; 93010